=== PATIENT | female | born 1985 | race African-American/Black ===

== ENCOUNTER 2023-01-23 14:36 | Emergency (ER) | payer BC ==
[~2023-01-23] VITALS: Ht 165.1 cm; Wt 65.8 kg
[2023-01-23 16:07] LABS: BASOPHILS # (AUTO) 0.1 K/uL (0.0-0.2); BASOPHILS % (AUTO) 0.7 % (0.0-2.0); EOSINOPHILS % (AUTO) 0.5 % (0.0-6.0); HEMATOCRIT 39 % (33-45); HEMOGLOBIN 12.2 g/dL (11.5-14.8); LYMPHOCYTES # (AUTO) 2.9 K/uL (0.8-4.8); LYMPHOCYTES % (AUTO) 31.9 % (20.0-44.0); MEAN CORPUSCULAR HEMOGLOBIN 26 PG (26.0-33.0); MEAN CORPUSCULAR HGB CONC 32 g/dl (31.0-36.0); MEAN CORPUSCULAR VOLUME 82 fL (82-100); MONOCYTES # (AUTO) 0.5 K/uL (0.1-1.30); MONOCYTES % (AUTO) 6.1 % (2.0-12.0); NEUTROPHILS # (AUTO) 5.5 K/uL (1.8-8.9); NEUTROPHILS % (AUTO) 60.8 % (43.0-81.0); PLATELET COUNT (AUTO) 322 K/uL (150-450); RED BLOOD CELL COUNT(AUTO) 4.67 MIL/uL (4.0-5.2)
[2023-01-23 16:13] LABS: APPEARANCE,URINE CLEAR (CLEAR); BILIRUBIN,URINE NEGATIVE (NEGATIVE); BLOOD, URINE NEGATIVE Ery/uL (NEGATIVE); COLOR,URINE YELLOW (YELLOW); KETONES,URINE NEGATIVE (NEGATIVE); LEUKOCYTE ESTERASE ,URINE NEGATIVE (NEGATIVE); NITRITE, URINE NEGATIVE (NEGATIVE); PROTEIN,URINE NEGATIVE (NEGATIVE); UGLUCOSE NEGATIVE (NEGATIVE); UROBILINOGEN,URINE 0.2 EU/dL (0.2)
[2023-01-23 16:14] LABS: CALCIUM, SERUM 9.6 mg/dL (8.5-10.1); CARBON DIOXIDE 26 mmol/L (21-32); CHLORIDE 103 mmol/L (98-107); CREATININE 0.9 mg/dL (0.6-1.3); GLUCOSE 90 mg/dL (74-106); SODIUM SERUM 139 mmol/L (136-145); UREA NITROGEN, BLOOD 9 mg/dL (7-18)
[2023-01-23 16:15] LABS: PREGNANCY TEST URINE QUAL NEGATIVE (NEGATIVE)
[2023-01-23 16:37] LABS: INR 1.05 (0.91-1.10); PARTIAL THROMBOPLASTIN TIME 30.4 SEC (24.3-34.3); PROTHROMBIN TIME 11.1 SECS (9.2-11.1)
[2023-01-23] MEDS ORDERED: ACYC400T19 PO (16:57)
[2023-01-23] MEDS ORDERED: METH4TAB17 PO (16:57)
[2023-01-23] MEDS ORDERED: predniSONE 50 MG TABLET PO ONE (17:00)
[2023-01-23 17:27] VITALS: BP 123/70; TEMP 97.9; O2SAT 98
== END 2023-01-23 17:05 | disposition home or self-care (01) ==
LOC: ER 14:45
DX: G51.0 Bell's palsy (principal); J45.909 Unspecified asthma, uncomplicated; Z79.899 Other long term (current) drug therapy; Z60.2 Problems related to living alone
CPT/HCPCS: 36415; 70450-TC; 80048-TC; 82962-TC; 84484-TC; 84703-TC; 85025-TC; 85730-TC